=== PATIENT | male | born 1965 | race Hispanic/Latino ===

== ENCOUNTER 2024-07-03 09:55 | Observation (INO) | payer BC ==
[2024-07-01 10:30] VITALS: BP 124/68; PULSE 49; RESP 16; TEMP 97.5
[2024-07-01 10:38] LABS: BASOPHILS # (AUTO) 0.08 K/uL (0.00-0.20); BASOPHILS % (AUTO) 1.3 % (0.0-5.0); EOSINOPHILS # (AUTO) 0.65 K/uL (0.00-0.70); EOSINOPHILS % (AUTO) 10.4 % (0.0-8.0); HEMATOCRIT 44.4 % (42-54); IMMATURE GRANULOCYTE ABSOLUTE 0.03 K/uL (0-1); LYMPHOCYTES # (AUTO) 1.9 K/uL (1.0-4.8); LYMPHOCYTES % (AUTO) 30.9 % (21.0-51.0); MEAN CORPUSCULAR HEMOGLOBIN 31.4 pg (27.0-33.0); MEAN CORPUSCULAR HGB CONC 33.8 g/dL (32.0-36.0); MEAN CORPUSCULAR VOLUME 93.1 fL (79-99); MONOCYTES # (AUTO) 0.4 K/uL (0.1-1.0); MONOCYTES % (AUTO) 6.7 % (3.0-13.0); NEUTROPHILS # (AUTO) 3.2 K/uL (1.8-7.7); NEUTROPHILS % (AUTO) 50.2 % (40.0-77.0); PLATELET COUNT (AUTO) 205 K/uL (130-400); RED BLOOD CELL COUNT(AUTO) 4.77 MIL/uL (4.50-6.20); WHITE BLOOD COUNT (AUTO) 6.3 K/uL (4.8-10.8)
[2024-07-01 10:43] LABS: CREATININE 0.7 mg/dL (0.5-1.3); POTASSIUM 4.1 mmol/L (3.5-5.1)
[2024-07-03] VITALS (25 sets, daily range): BP systolic 128–158; BP diastolic 58–84; PULSE 51–79; RESP 16–20; TEMP 97.1–98.4; O2SAT 99
[~2024-07-03] VITALS: Ht 180.3 cm; Wt 94.5 kg
[~2024-07-03 09:55] MED LIST: ATOR40TA71 PO; METF-444 PO; TAMS-1 PO
[2024-07-03] MEDS: 0.9%NACL 1000ML 1,000 ML IV ONE (12:54)
[2024-07-03] MEDS: ceFAZolin SODIUM 2 GM VIAL ONE (12:54)
[2024-07-03] MEDS ORDERED: SUCR1TAB2 PO (12:59)
[2024-07-03] MEDS ORDERED: FAMO40TA7 PO (12:59)
[2024-07-03] MEDS ORDERED: ESOM40CA66 PO (12:59)
[2024-07-03] MEDS: DEXTROSE 50%-WATER 50 ML DISP.SYRIN IV ONE (13:10)
[2024-07-03] MEDS ORDERED: proPOFol 10 MG/ML 20ML VIAL IV ONE (15:27)
[2024-07-03] MEDS ORDERED: SUCCINYLCHOLINE CHLORIDE 20 MG/ML 10 ML VIAL ONE (15:27)
[2024-07-03] MEDS ORDERED: LIDOCAINE PF 100MG/5ML (2%) SYRINGE 5ML ONE (15:27)
[2024-07-03] MEDS ORDERED: MIDAZOLAM HCL 1 MG/ML 2ML VIAL ONE (15:27)
[2024-07-03] MEDS ORDERED: FENTanyl CITRate PF 50 MCG/1 ML 5ML AMP IV ONE ×2 (15:29→17:33)
[2024-07-03] MEDS ORDERED: rocuRONium bROMide 10MG/1ML 5ML VL ONE ×2 (15:31→16:14)
[2024-07-03] MEDS: BUPIvacaine/PF 0.25% 30ML VIAL IJ ONE (15:49)
[2024-07-03] MEDS ORDERED: dexaMETHasone SOD PHOSPHATE 10MG/ML 1ML VIAL ONE (15:55)
[2024-07-03] MEDS ORDERED: GLYCOPYRROLATE 0.2 MG/ML 5 ML VIAL ONE (16:18)
[2024-07-03] MEDS ORDERED: ePHEDrine SULFate 50 MG/ML AMPULE ONE (16:26)
[2024-07-03] MEDS ORDERED: SUGAMMADEX SODIUM 200 MG/2 ML VIAL IV ONE (17:17)
[2024-07-03] MEDS ORDERED: acetaMINOPHEN 100 ML ONE (17:17)
[2024-07-03] MEDS ORDERED: ketOROlac 30MG VIAL (30MG/ML) IV PRN (17:30)
[2024-07-03] MEDS ORDERED: ondanSETRON 4MG INJ IVP PRN (17:30)
[2024-07-03] MEDS ORDERED: HYDROcod/acetaMINOPHEN 7.5/325 MG 15 ML UDCUP PO PRN (17:30)
[2024-07-03] MEDS ORDERED: hydroMORPHone 1 MG INJ IVP PRN (17:30)
[2024-07-03] MEDS ORDERED: PROCHLORPERAZINE 10MG/2ML INJ IV PRN (17:30)
--- NOTE | 2024-07-03 17:30 | OP ---
Operative Note: DATE OF PROCEDURE: 07/03/24 SURGEON: BIJAL BUTLER MD [employer]ED OPERATOR MAINTAINER: Tom Butler MD PA-C ANESTHESIA: General and local ANESTHESIOLOGIST/CLIP AND HANGER ATTACHER: [facility] [place] PREOPERATIVE DIAGNOSIS: Symptomatic GERD and Hiatal Hernia POSTOPERATIVE DIAGNOSIS: As above. SYNOPSIS: This is a hiatal hernia repair with mesh reinforcement performed without incident. Brittany fundoplication performed. PROCEDURE: 1. Robotic assisted hiatal hernia repair with mesh reinforcement 2. Brittany type fundoplication 3. EGD ESTIMATED BLOOD LOSS: Minimal, less than 30 cc INDICATIONS: As above. GERD unresponsive to maximal medical management in the setting of sliding hiatal hernia DESCRIPTION OF PROCEDURE: After standard precautions and preparations were undertaken a Veress needle and optical trocar were used to enter the abdominal cavity. All other instruments were placed under direct vision. The robotic system was docked in the standard fashion. We began our dissection by opening pars flaccida and identifying the right delicia of the diaphragm. We are able to enter into a nearly avascular plane within the mediastinum after clearing attachments to the right and left crura of the diaphragm. We carried this dissection circumferentially to mobilize the distal esophagus and allow the GE junction to rest well below the hiatus without any tension. With the right and left crura exposed we performed a hiatal hernia repair by suturing the crura back in reapproximation. We started at the crossing fibers and worked our way upwards towards the posterior esophageal wall. Care was taken not to over tighten the closure and this was reinforced with a mesh placement. We utilized a slowly absorbable two sided Bard mesh product which was cut in a horseshoe shape and placed as an overlay. The mesh was sutured in place to prevent mesh migration and maximize tissue contact with the mesh. We then performed a fundoplication portion of the case by mobilizing the upper fundus utilizing a bipolar device to divide attachments between the stomach and spleen. The fundus was pulled through the retroesophageal space and was able to reach circumferentially without any undue tension. We sutured the fundoplication for distance of approximately 4-5 cm. The wrap was pexy to the undersurface of the diaphragm as well. Throughout the case my partner was utilizing the EGD scope to visualize the appropriate anatomic landmarks such that I could remained at the robotic console while operating. At the end of the case we examined the anatomy and found the fundoplication to be appropriately located the mucosa of the esophagus and p roximal stomach all appeared healthy and well perfused and the hiatal hernia was repaired well but not overly tightened. All instrument counts were verified as correct prior to ending the case including needles and sponges. BIJAL BUTLER MD Jul 03, 2024 17:30
--- NOTE | 2024-07-03 17:31 | PN ---
GENERAL SURGERY PROGRESS NOTE Date/Time Patient Seen: [07/03/2024 ] Problem List: [ ] Interval History: [Postop day 0. Pain tolerable with p.r.n. medication. ] Physical Examination: GENERAL: [No acute distress.] Abdominal exam: Incisions clean, dry and intact, Dermabond in place Vital Signs (last 8hr) Date Time Temp Pulse Resp B/P (MAP) Pulse Ox O2 Delivery O2 Flow Rate FiO2 07/03/24 12:30 97.7 53 18 128/74 98 Room Air Laboratory: [ ] Chemistry Labs: Test 07/03/24 14:31 Range/Units Whole Blood Glucose 86 70-110 MG/DL Diagnostics / Radiology: [Copy/Paste Echos/Imaging Report here] Impression and Plan: [Plan is for discharge home in the next day or two, as long as patient tolerating p.o. intake, ambulatory and pain under control. ] BIJAL BUTLER MD Jul 03, 2024 17:31
[2024-07-03] MEDS: MEPERIDINE-PF 25 MG/ML SYG ONE ×2 (18:06→18:17)
--- NOTE | 2024-07-03 18:55 | NUR ---
RECEIVED PATIENT FROM OPERATING ROOM. PATIENT IS ALERT, ORIENTED IN PERSON, TIME AND PLACE. NO SIGNS OF RESPIRATORY DISTRESS. PATIENT WITH A NASAL CANULA @2LTS. BOWEL SOUNDS PRESENT AND HYPOACTIVE IN ALL FOUR ABDOMINAL QUADRANTS. DORSALIS PEDIS PRESENT ON BOTH FEET, STRONG. PATIENT HAS 5 ABDOMINAL SURGICAL INCISIONS ON LOWER ABDOMEN. ABDOMEN SOFT, TENDER. PATIENT VERBALIZED NO PAIN AT THE MOMENT. DISCUSSED PLAN OF CARE, PAIN MANAGEMENT, MEDICATIONS AND DIET RESTRICTIONS. PATIENT VERBALIZED UNDERSTANDING. PIV TO 20G TO RIGHT FOREARM. SALINE LOCK.
[2024-07-03] MEDS: FAMOTIDINE 20MG VIAL IV SCH (20:42)
[2024-07-04 00:40] VITALS: BP 150/64; PULSE 50; RESP 20; TEMP 98.1
[2024-07-04] MEDS: LACTATED RINGERS 1000ML 1,000 ML IV SCH (00:46)
[2024-07-04 04:00] VITALS: BP 132/48; PULSE 49; RESP 16; TEMP 98.7
[2024-07-04] MEDS: ENOXAPARIN SODIUM 30 MG/0.3 ML SQ SCH (06:47)
[2024-07-04 08:00] VITALS: BP 114/52; PULSE 50; RESP 18; TEMP 98.6; O2SAT 99
[2024-07-04] MEDS ORDERED: hydroMORPHone 0.5 MG SYG (0.5MG/0.5ML) IVP PRN (09:30)
[2024-07-04] MEDS ORDERED: ketOROlac 15MG/ML VIAL (15MG/ML) IV PRN (09:30)
--- NOTE | 2024-07-04 11:48 | NUR ---
DCP-Home Pt awake, alert, oriented. PCP is Spencer Hutchinson MD. Pt lives with spouse. 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 Addendum: 07/04/24 at 1151 by KIET HUANG RN Amended: Links added.
[2024-07-04 12:00] VITALS: BP 113/55; PULSE 46; RESP 18; TEMP 98.1
[2024-07-04 16:00] VITALS: BP 141/69; PULSE 60; RESP 18; TEMP 99.7
--- NOTE | 2024-07-04 17:01 | PN ---
GENERAL SURGERY PROGRESS NOTE Date/Time Patient Seen: [July 04, 2024 at 4:30 p.m. ] Problem List: [Diaphragmatic hernia Gastroesophageal reflux disease ] Interval History: [The patient is a pleasant 58-year-old male status post robotic assisted hiatal hernia repair with Brittany fundoplication done by Dr. Dony Hutchinson. The patient is awake alert and oriented x3 resting comfortably in bed. The patient is not in acute distress. The patient is accompanied by spouse in the room present. The patient endorses pain that is tolerable with p.r.n. medication. The patient is tolerating a clear liquid diet well without any upper or lower GI issues. The patient states he has been ambulating and passing gas without difficulty. Overall the patient is happy with the procedure and ready to go home today. ] Current Medications Medications (Trade) Dose Ordered Sig/Reza Route Start Time Stop Time Status Last Admin Dose Admin Enoxaparin Sodium (Lovenox) 30 mg Q12H SQ 07/03/24 17:30 08/02/24 17:29 07/04/24 06:48 30 MG Famotidine (Pepcid 20mg Vial) 20 mg BID IV 07/03/24 21:00 08/02/24 20:59 07/04/24 09:31 20 MG Lactated Ringer's 1,000 ml @ 150 mls/hr Q6H40M IV 07/03/24 17:30 08/02/24 17:29 07/04/24 06:47 150 MLS/HR Physical Examination: GENERAL: [No acute distress.] HEAD: [Normal with no signs of head trauma.] EYES: [PERRLA, EOMI, conjunctiva and sclera normal.] ENT: [Hearing grossly intact, normal oropharynx.] NECK: [Supple without JVD. There is no tenderness, lymphadenopathy, or masses. No thyromegaly. Normal carotid upstrokes without bruits.] LUNGS: [Clear breath sounds bilaterally. There are right basilar rales one third of the way up the chest. No wheezes, or rhonchi.] HEART: [Normal rate and rhythm. Normal S1 and S2 without mumurs, gallop or rub.] VASC: [Peripheral pulses +2 bilaterally.] ABD: [Bowel sounds normal, soft, nontender, no masses, no organomegaly. No audible bruits.] : [Not examined] LYMPH: [No lymphadenopathy noted.] EXT: [No clubbing, cyanosis or edema.] SKIN: [No rashes or lesions noted.] NEURO: [Awake, alert, and oriented x3. No focal sensory or strength deficits noted.] Vital Signs (last 8hr) Date Time Temp Pulse Resp B/P (MAP) Pulse Ox O2 Delivery O2 Flow Rate FiO2 07/04/24 12:00 98.1 46 18 113/55 98 Room Air Laboratory: [ ] Chemistry Labs: Test 07/04/24 16:06 Range/Units Whole Blood Glucose 88 70-110 MG/DL Diagnostics / Radiology: [Copy/Paste Echos/Imaging Report here] Impression and Plan: [Postoperative day 1. The patient is progressing well. We will continue to monitor and treat pain as needed. GI/DVT prophylaxis recommended and encouraged. Patient is bradycardic but asymptomatic. Patient states this is his normal baseline. The patient may advance to full liquid diet and resume home medications. Incision care, hydration, activity and dietary restrictions discussed with the patient. The patient understands and agrees. The plan is to discharge the patient home today and follow up outpatient in 5-10 days. Postoperative follow- up appointment and postoperative medications sent by my office staff. ] MARYCRUZ GARBER Jul 04, 2024 17:01
--- NOTE | 2024-07-04 17:02 | DS ---
Discharge Summary Assessment The patient is progressing very well. Pain is tolerable with medication. Patient ambulating and tolerating liquid diet well. Hospital Course Patient will be discharged home today. Refer to today's progress note. MARYCRUZ GARBER Jul 04, 2024 17:02
== END 2024-07-04 18:40 | disposition home or self-care (01) ==
LOC: DAH 09:55 → INTOOBSV 09:56 → DAHIP 09:56 → 4DH 18:49
PROVIDERS: ADMIT Surgery; ATTEND Surgery
DX: K44.9 Diaphragmatic hernia without obstruction or gangrene (principal); K21.9 Gastro-esophageal reflux disease without esophagitis; Z79.899 Other long term (current) drug therapy
CPT/HCPCS: 80048; 85025; 86850; 86900; 86901; 36415; 43282; 96374; 96375; 82948 ×6; 43235; 96376; 96372; 97161; 97116; A6260; A4663; A4215 ×2; J3490 ×6; J3010 ×2; J1100; J0330; J7030; J0665; J7070; J2003; J2250; J2704; J2175 ×2; J0690; C1781; A4930; A4223 ×2; A4213; A4222; A4221; A4216; A4600; G0378 ×5; J1650